=== PATIENT | male | born 1965 | race African-American/Black ===

== ENCOUNTER 2018-06-02 07:20 | Emergency (ER) | payer SELFPAY ==
[~2018-06-02] VITALS: Ht 180.3 cm; Wt 106.6 kg
[2018-06-02 07:20] VITALS: BP 157/103
[2018-06-02] MEDS ORDERED: KETOROLAC 60 MG/2 ML VIAL. IM ONE (07:45)
[2018-06-02] MEDS ORDERED: ORPHENADRINE CITRATE 60 MG/2 ML VIAL. IM ONE (07:45)
[2018-06-02] MEDS ORDERED: HYDROcodone/APAP 7.5/325MG 1 TAB TABLET PO ONE (07:45)
[2018-06-02] MEDS ORDERED: ORPHENADRINE ER 100 MG TABLET.ER PO ONE ×2 (07:48→08:00)
[2018-06-02] MEDS ORDERED: HYDR-965 PO (08:10)
[2018-06-02] MEDS ORDERED: ORPH-16 PO ×2 (08:10→08:18)
[2018-06-02] MEDS ORDERED: DICL50TA4 PO ×2 (08:10→08:18)
--- NOTE | 2018-06-02 08:10 | PHYS DOC ---
Past History Past Medical History: Hypertension Past Surgical History: No Surgical History Alcohol Use: None Drug Use: None Adult General Chief Complaint Chief Complaint: LOWER BACK PAIN OR INJURY HPI HPI Patient is a 52-year-old male who presents with complaint of flareup of his sciatica. Patient states that pain has been progressively worsening since yesterday. He states that he has been taking Tylenol at home but states that that has not been helping with the pain. He states that he does have a history of sciatica. He states the pain radiates down to his knee primarily in the back of his leg. He states that pain is worst around his right buttock. He denies any loss of bowel or bladder function. Pain is worsened with movement of his leg. Review of Systems Review of Systems Constitutional: Denies fever or chills [] Respiratory: Denies cough or shortness of breath [] GI: Denies abdominal pain, nausea, vomiting or diarrhea [] : Denies dysuria or hematuria [] Musculoskeletal: Complains of lower back pain and right buttock pain[] Integument: Denies rash or skin lesions [] Neurologic: Denies headache, focal weakness or sensory changes [] All other systems were reviewed and found to be within normal limits, except as documented in this note. Current Medications Current Medications Current Medications Medications (Trade) Dose Ordered Sig/Angel Start Time Stop Time Status Last Admin Dose Admin Acetaminophen/ Hydrocodone Bitart (Lortab 7.5/325) 1 tab 1X ONCE 06/02/18 07:45 06/02/18 07:46 DC 06/02/18 07:50 1 TAB Ketorolac Tromethamine (Toradol Im) 60 mg 1X ONCE 06/02/18 07:45 06/02/18 07:46 DC 06/02/18 07:50 60 MG Orphenadrine Citrate (Norflex Er) 100 mg 1X ONCE 06/02/18 08:00 06/02/18 08:01 DC 06/02/18 07:52 100 MG Orphenadrine Citrate (Norflex) 60 mg 1X ONCE 06/02/18 07:45 06/02/18 07:46 DC Allergies Allergies Allergies Coded Allergies Type Severity Reaction Last Updated Verified No Known Drug Allergies 06/02/18 No Physical Exam Physical Exam Constitutional: Well developed, well nourished, no acute distress, non-toxic appearance. [] Neck: Normal range of motion, no tenderness, supple, no stridor. [] Cardiovascular:Heart rate regular rhythm, no murmur [] Lungs & Thorax: Bilateral breath sounds clear to auscultation [] Back: There is tenderness to palpation in the right lower lumbar paraspinal musculature. Tenderness to palpation around the right buttock and evidence of piriformis spasm. [] Extremities: No tenderness, no cyanosis, no clubbing, ROM intact, no edema. [] Neurologic: Alert and oriented X 3, normal motor function, normal sensory function, no focal deficits noted. [] Current Patient Data Vital Signs Vital Signs Date Time Temp Pulse Resp B/P (MAP) Pulse Ox O2 Delivery O2 Flow Rate FiO2 06/02/18 07:20 97.6 70 18 100 Room Air EKG EKG [] Radiology/Procedures Radiology/Procedures [] Course & Med Decision Making Course & Med Decision Making Pertinent Labs and Imaging studies reviewed. (See chart for details) [] Dragon Disclaimer Dragon Disclaimer This electronic medical record was generated, in whole or in part, using a voice recognition dictation system. Departure Departure: Impression: Primary Impression: Sciatica Disposition: HOME, SELF-CARE Condition: STABLE Referrals: NON,STAFF (PCP) Patient Instructions: Sciatica Problem Qualifiers Primary Impression: Sciatica Laterality: right Qualified Codes: M54.31 - Sciatica, right side TAMIKO SMALL Jr. DO Jun 02, 2018 08:10
[2018-06-02] MEDS ORDERED: HYDR-2762 PO (08:18)
== END 2018-06-02 08:43 | disposition home or self-care (01) ==
LOC: ER 07:20
DX: M54.41 Lumbago with sciatica, right side (principal); I10 Essential (primary) hypertension
CPT/HCPCS: 96372; 99283; J1885

== ENCOUNTER 2018-07-03 18:46 | Emergency (ER) | payer SELFPAY ==
[~2018-07-03] VITALS: Ht 180.3 cm; Wt 108.9 kg
[~2018-07-03 18:46] MED LIST: DICL50TA4 PO; HYDR-2762 PO; HYDR-965 PO; ORPH-16 PO
--- NOTE | 2018-07-03 19:38 | PHYS DOC ---
Past History Past Medical History: GERD, High Cholesterol, Hypertension Past Surgical History: Other Additional Smoking Information: 1/2 PACK/DAY Alcohol Use: None Drug Use: None Adult General Chief Complaint Chief Complaint: HIP PAIN HPI HPI Patient is a 52 year old male who presents with complaint of right-sided back pain. Patient states symptoms started yesterday and have been worsening today. Patient states he's had previous history of sciatica. Patient states he's been taking ibuprofen with no improvement symptoms. Patient states that he has been prescribed Flexeril in the past and has this medication home but has not taken it. Patient came in to have his back pain evaluated to see if he could receive additional treatment. Denies any loss of bowel or bladder control, saddle anesthesia, or foot drop. Patient states that the pain terminates just below the knee but does not go all the way into his right foot. Denies any recent trauma, denies any swelling to the right lower extremity, and denies any chest pain or shortness of breath. Review of Systems Review of Systems Constitutional: Denies fever or chills [] Eyes: Denies change in visual acuity, redness, or eye pain [] HENT: Denies nasal congestion or sore throat [] Respiratory: Denies cough or shortness of breath [] Cardiovascular: No additional information not addressed in HPI [] GI: Denies abdominal pain, nausea, vomiting, bloody stools or diarrhea [] : Denies dysuria or hematuria [] Musculoskeletal: Right-sided back and lower extremity pain[] Integument: Denies rash or skin lesions [] Neurologic: Denies headache, focal weakness or sensory changes [] Endocrine: Denies polyuria or polydipsia [] All other systems were reviewed and found to be within normal limits, except as documented in this note. Allergies Allergies Allergies Coded Allergies Type Severity Reaction Last Updated Verified No Known Drug Allergies 06/02/18 No Physical Exam Physical Exam Constitutional: Well developed, well nourished, no acute distress, non-toxic appearance. [] HENT: Normocephalic, atraumatic, bilateral external ears normal, oropharynx moist, no oral exudates, nose normal. [] Eyes: PERRLA, EOMI, conjunctiva normal, no discharge. [] Neck: Normal range of motion, no tenderness, supple, no stridor. [] Cardiovascular:Heart rate regular rhythm, no murmur [] Lungs & Thorax: Bilateral breath sounds clear to auscultation [] Abdomen: Bowel sounds normal, soft, no tenderness, no masses, no pulsatile masses. [] Skin: Warm, dry, no erythema, no rash. [] Back: No midline tenderness, right lower lumbar paraspinous muscle tenderness to palpation, positive straight leg test on the right lower extremity. [] Extremities: No tenderness, no cyanosis, no clubbing, ROM intact, no edema. [] Neurologic: Alert and oriented X 3, normal motor function, normal sensory function, no focal deficits noted. [] Current Patient Data Vital Signs Vital Signs Date Time Temp Pulse Resp B/P (MAP) Pulse Ox O2 Delivery O2 Flow Rate FiO2 07/03/18 18:55 98.2 90 16 96 Room Air Lab Results Not performed EKG EKG Not performed[] Radiology/Procedures Radiology/Procedures Not performed[] Course & Med Decision Making Course & Med Decision Making Pertinent Labs and Imaging studies reviewed. (See chart for details) Patient was treated with Norflex and Depo-Medrol in the emergency department. Advised to continue on ibuprofen in 2 days and to start using Flexeril tomorrow as prescribed by his previous physician. Also recommended use of Tylenol 1000 mg every 6 hours as needed for pain. Recommended follow-up in one week with primary doctor for reevaluation and return to the emergency department for any worsening symptoms. Patient was understanding and in agreement with treatment plan. Dragon Disclaimer Dragon Disclaimer This electronic medical record was generated, in whole or in part, using a voice recognition dictation system. Departure Departure: Impression: Primary Impression: Sciatica of right side Disposition: 01 HOME, SELF-CARE Condition: IMPROVED Referrals: NON,STAFF (PCP) Patient Instructions: Sciatica Additional Instructions: Follow-up with your primary doctor in 1 week for reevaluation. You may take Tylenol 1000 mg every 6 hours as needed for pain. Is also recommended that you start on your Flexeril prescription as needed for pain. Return to emergency department for any worsening symptoms. BALJINDER HALL MD Jul 03, 2018 19:38
[2018-07-03] MEDS ORDERED: methylPREDNISolone ACETATE 80 MG/ML VIAL. IM ONE (19:45)
[2018-07-03] MEDS ORDERED: ORPHENADRINE CITRATE 60 MG/2 ML VIAL. IM ONE (19:45)
[2018-07-03 19:56] VITALS: BP 104/71
== END 2018-07-03 19:57 | disposition home or self-care (01) ==
LOC: ER 18:46
DX: M54.41 Lumbago with sciatica, right side (principal); K21.9 Gastro-esophageal reflux disease without esophagitis; E78.00 Pure hypercholesterolemia, unspecified; I10 Essential (primary) hypertension; F17.200 Nicotine dependence, unspecified, uncomplicated
CPT/HCPCS: 96372; 99284; J1040; J2360

== ENCOUNTER 2018-07-08 07:27 | Emergency (ER) | payer SELFPAY ==
[~2018-07-08] VITALS: Ht 180.3 cm; Wt 105.9 kg
[~2018-07-08 07:27] MED LIST changes: +HYDR-3166 PO; -HYDR-965 PO
[2018-07-08] MEDS ORDERED: HYDR-3165 PO (08:10)
[2018-07-08] MEDS ORDERED: METH4TAB2 PO (08:10)
[2018-07-08 08:12] VITALS: BP 141/92
--- NOTE | 2018-07-08 08:13 | PHYS DOC ---
Past History Past Medical History: GERD, High Cholesterol, Hypertension Past Surgical History: Other Alcohol Use: None Drug Use: None Adult General Chief Complaint Chief Complaint: BACK PAIN OR INJURY [facility] HPI Patient is a 52 year old male who presents with complaining of back pain since yesterday. Patient states he has had history of chronic right sciatica and was seen in this emergency room 5 days ago but since yesterday his low back pain is getting worse. Patient complaining of constant right lower back pain with radiation to posterior thigh and rated his pain 8/10. Patient denies focal neuro deficit, urine and bowel incontinence, fever and chills, abdominal pain. Patient states he took muscle relaxant that was given by his physician at which stopped. Patient states he moved to this area recently and doesn't have a primary care physician. Review of Systems Review of Systems Constitutional: Denies fever or chills [] Eyes: Denies change in visual acuity, redness, or eye pain [] HENT: Denies nasal congestion or sore throat [] Respiratory: Denies cough or shortness of breath [] Cardiovascular: No additional information not addressed in HPI [] GI: Denies abdominal pain, nausea, vomiting, bloody stools or diarrhea [] : Denies dysuria or hematuria [] Musculoskeletal: Reports back pain or joint pain [] Integument: Denies rash or skin lesions [] Neurologic: Denies headache, focal weakness or sensory changes [] Endocrine: Denies polyuria or polydipsia [] All other systems were reviewed and found to be within normal limits, except as documented in this note. Current Medications Current Medications Current Medications Medications (Trade) Dose Ordered Sig/[facility] Start Time Stop Time Status Last Admin Dose Admin Ketorolac Tromethamine (Toradol Im) 60 mg 1X ONCE 07/08/18 08:15 07/08/18 08:16 Allergies Allergies Allergies Coded Allergies Type Severity Reaction Last Updated Verified No Known Drug Allergies 06/02/18 No Physical Exam Physical Exam Constitutional: Well developed, well nourished, mild distress, non-toxic appearance. [] HENT: Normocephalic, atraumatic Eyes: PERRLA, EOMI, conjunctiva normal, no discharge. [] Neck: Normal range of motion, no tenderness, supple, no stridor. [] Cardiovascular:Heart rate regular rhythm, no murmur [] Lungs & Thorax: Bilateral breath sounds clear to auscultation [] Abdomen: Bowel sounds normal, soft, no tenderness, no masses, no pulsatile masses. [] Skin: Warm, dry, no erythema, no rash. [] Back: No midline tenderness, no CVA tenderness. [] Extremities: No tenderness, no cyanosis, no clubbing, ROM intact, no edema. [] Neurologic: Alert and oriented X 3, normal motor function, normal sensory function, no focal deficits noted. [] Psychologic: Affect normal, judgement normal, mood normal. [] EKG EKG [] Radiology/Procedures Radiology/Procedures [] Course & Med Decision Making Course & Med Decision Making discharge: I've spoken with the patient and/or caregivers. I've explained the patient's condition, diagnosis and treatment plan based on information available to me at this time. I've answered the patient's and/or caregivers questions and addressed any concerns. The patient and/or caregivers have a good understanding the patient's diagnosis, condition and treatment plan as can be expected at this point. Vital signs have been stabilized. The patient's condition is stable for discharge from the emergency department. The patient will pursue further outpatient evaluation with her primary care provider or other designated consulting physician as outlined in the discharge instructions. Patient and/or caregivers are agreeable to this plan of care and follow-up instructions have been explained in detail. The patient and/or caregivers have received these instructions in written format and expressed understanding of these discharge instructions. The patient and her caregivers are aware that if any significant change in condition or worsening of symptoms should prompt him to immediately return to this of the closest emergency department. If an emergent department is not readily available I would encourage him to call 911. Becky Disclaimer Becky Disclaimer This electronic medical record was generated, in whole or in part, using a voice recognition dictation system. Departure Departure: Impression: Primary Impression: Right sided sciatica Additional Impressions: Tobacco abuse Tobacco abuse counseling Disposition: HOME, SELF-CARE (at 0815) Condition: STABLE Referrals: PCPEDER (PCP) Patient Instructions: Sciatica, Smoking Cessation, Tips For Success Additional Instructions: Apply ice on your back Follow-up with your primary care physician in 3-5 days Return to ER if not getting better Scripts Hydrocodone Bit/Acetaminophen (NORCO 5-325 TABLET) 1 Each Tablet 1 TAB PO PRN Q6HRS PRN for PAIN, #8 TAB 0 Refills Prov: CYNDEE CLINTON MD 07/08/18 Methylprednisolone (MEDROL) 4 Mg Tab.ds.pk 1 PKG PO UD for inflammation, #1 PKG Prov: CYNDEE CLINTON MD 07/08/18 Problem Qualifiers CYNDEE CLINTON MD Jul 08, 2018 08:13
[2018-07-08] MEDS ORDERED: KETOROLAC 60 MG/2 ML VIAL. IM ONE (08:15)
== END 2018-07-08 08:28 | disposition home or self-care (01) ==
LOC: ER 07:27
DX: M54.41 Lumbago with sciatica, right side (principal); K21.9 Gastro-esophageal reflux disease without esophagitis; E78.00 Pure hypercholesterolemia, unspecified; I10 Essential (primary) hypertension; Z72.0 Tobacco use; Z71.6 Tobacco abuse counseling
CPT/HCPCS: 96372; 99283; J1885

== ENCOUNTER 2018-07-18 09:23 | Emergency (ER) | payer SELFPAY ==
[~2018-07-18] VITALS: Ht 180.3 cm; Wt 104.6 kg
[~2018-07-18 09:23] MED LIST changes: -HYDR-2762 PO; +HYDR-2765 PO; +HYDR-3165 PO; +METH4TAB2 PO
--- NOTE | 2018-07-18 10:13 | PHYS DOC ---
Past History Past Medical History: Hypertension Past Surgical History: Other Additional Smoking Information: 1 pack/day Alcohol Use: None Drug Use: None Adult General Chief Complaint Chief Complaint: BACK PAIN OR INJURY HPI HPI 52-year-old male presents with right-sided low back pain and right hip pain. He states he's had intermittent problems with this area for several years. Yesterday began to flareup and he tried taking [id number] medicines. He did not help very much. When the patient woke up this morning, he states the pain was much worse. It is a deep aching 7 out of 10. The patient recently moved here from [place]. He is not established with a primary care physician here yet. Patient states that if he has [place] for 2 days that usually calms down afterward for at least a couple weeks. He admits that the flareups to be getting more frequent. He was supposed to start physical therapy and would stop before he moved but was unable to do that. He denies fever or chills. Review of Systems Review of Systems Constitutional: Denies fever or chills [] Eyes: Denies change in visual acuity, redness, or eye pain [] HENT: Denies nasal congestion or sore throat [] Respiratory: Denies cough or shortness of breath [] Cardiovascular: No additional information not addressed in HPI [] GI: Denies abdominal pain, nausea, vomiting, bloody stools or diarrhea [] : Denies dysuria or hematuria [] Musculoskeletal: Low back pain, right hip pain[] Integument: Denies rash or skin lesions [] Neurologic: Denies headache, focal weakness or sensory changes [] Endocrine: Denies polyuria or polydipsia [] All other systems were reviewed and found to be within normal limits, except as documented in this note. Allergies Allergies Allergies Coded Allergies Type Severity Reaction Last Updated Verified No Known Drug Allergies 06/02/18 No Physical Exam Physical Exam Constitutional: Well developed, well nourished, no acute distress, non-toxic appearance. [] HENT: Normocephalic, atraumatic, bilateral external ears normal, oropharynx moist, no oral exudates, nose normal. [] Eyes: PERRLA, EOMI, conjunctiva normal, no discharge. [] Neck: Normal range of motion, no tenderness, supple, no stridor. [] Cardiovascular:Heart rate regular rhythm, no murmur [] Lungs & Thorax: Bilateral breath sounds clear to auscultation [] Abdomen: Bowel sounds normal, soft, no tenderness, no masses, no pulsatile masses. [] Skin: Warm, dry, no erythema, no rash. [] Back: Paraspinal tenderness on the right L3-L5. Right sacroiliac tenderness.[] Extremities: No tenderness, no cyanosis, no clubbing, ROM intact, no edema. [] Neurologic: Alert and oriented X 3, normal motor function, normal sensory function, no focal deficits noted. [] Psychologic: Affect normal, judgement normal, mood normal. [] Current Patient Data Vital Signs Vital Signs Date Time Temp Pulse Resp B/P (MAP) Pulse Ox O2 Delivery O2 Flow Rate FiO2 07/18/18 09:32 98.0 88 16 96 Room Air EKG EKG [] Radiology/Procedures Radiology/Procedures [] Course & Med Decision Making Course & Med Decision Making Pertinent Labs and Imaging studies reviewed. (See chart for details) I believe the patient has sacroiliac dysfunction and possible lumbar degenerative change. He has had a couple of prescriptions filled from this emergency room for [place]. I explained to him that I would provide him one more short course of this medication in addition to the steroid treatment that I will prescribe. I explained that we will be unable to do any more narcotics for this chronic pain. He must go back to [place] and follow-up with his current physician or establish with a new physician so he can have more consistent care and to get into physical therapy. He states verbal understanding. [] Dragon Disclaimer Dragon Disclaimer This electronic medical record was generated, in whole or in part, using a voice recognition dictation system. Departure Departure: Referrals: PCP,EDER (PCP) ELKE FENTON DO Jul 18, 2018 10:13
[2018-07-18] MEDS: methylPREDNISolone SOD SUCC PF 125 MG/2 ML VIAL. IM ONE (10:25)
[2018-07-18] MEDS: HYDROcodone/APAP 7.5/325MG 1 TAB TABLET PO ONE (10:25)
[2018-07-18] MEDS ORDERED: HYDR-3166 PO (10:31)
[2018-07-18] MEDS ORDERED: PRED-220 PO (10:35)
[2018-07-18 10:38] VITALS: BP 133/93
[2018-07-19] MEDS ORDERED: TRAM-48 PO (12:19)
[2018-07-19] MEDS ORDERED: CYCL-331 PO (12:19)
== END 2018-07-18 10:47 | disposition home or self-care (01) ==
LOC: ER 09:23
DX: M53.3 Sacrococcygeal disorders, not elsewhere classified (principal); M54.5 Low back pain; M25.551 Pain in right hip; G89.29 Other chronic pain; I10 Essential (primary) hypertension; F17.200 Nicotine dependence, unspecified, uncomplicated
CPT/HCPCS: 96372; 99283; J2930

== ENCOUNTER 2018-07-19 10:47 | Emergency (ER) | payer SELFPAY ==
[~2018-07-19] VITALS: Ht 180.3 cm; Wt 106.6 kg
[~2018-07-19 10:47] MED LIST changes: +PRED-220 PO
[2018-07-19 11:02] VITALS: BP 158/72
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
[2018-07-19] MEDS ORDERED: HYDROcodone/APAP 5/325MG 1 TAB TABLET PO ONE (12:00)
[2018-07-19] MEDS ORDERED: CYCL-331 PO (12:19)
[2018-07-19] MEDS ORDERED: TRAM-48 PO (12:19)
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
== END 2018-07-19 12:41 | disposition home or self-care (01) ==
LOC: ER 10:47
DX: S43.492A Other sprain of left shoulder joint, initial encounter (principal); E78.00 Pure hypercholesterolemia, unspecified; I10 Essential (primary) hypertension; F17.210 Nicotine dependence, cigarettes, uncomplicated; Z71.6 Tobacco abuse counseling; X50.9XXA Other and unspecified overexertion or strenuous movements or postures, initial encounter; Y93.89 Activity, other specified; Y92.89 Other specified places as the place of occurrence of the external cause; Y99.8 Other external cause status
CPT/HCPCS: 73030; 99283

== ENCOUNTER 2018-08-05 06:07 | Emergency (ER) | payer SELFPAY ==
[~2018-08-05] VITALS: Ht 182.9 cm; Wt 106.6 kg
[~2018-08-05 06:07] MED LIST changes: +CYCL-331 PO; +TRAM-48 PO
[2018-08-05 06:19] VITALS: BP 148/86
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
[2018-08-05] MEDS ORDERED: methylPREDNISolone SOD SUCC PF 125 MG/2 ML VIAL. IV ONE (06:45)
[2018-08-05] MEDS ORDERED: KETOROLAC 60 MG/2 ML VIAL. IM ONE (06:45)
[2018-08-05] MEDS ORDERED: PRED-220 PO (06:47)
[2018-08-05] MEDS ORDERED: methylPREDNISolone SOD SUCC PF 125 MG/2 ML VIAL. IM ONE (07:00)
== END 2018-08-05 07:00 | disposition home or self-care (01) ==
LOC: ER 06:07
DX: G89.29 Other chronic pain (principal); M54.5 Low back pain; E78.00 Pure hypercholesterolemia, unspecified; I10 Essential (primary) hypertension; F17.210 Nicotine dependence, cigarettes, uncomplicated
CPT/HCPCS: 96372; 99283; J1885; J2930

== ENCOUNTER → 2018-08-24 | Outpatient (CLI) | payer SELFPAY ==
[2018-08-05 06:19] VITALS: BP 148/86
[2018-08-24 17:18] LABS: ALBUMIN 3.7 g/dL (3.4-5.0); ALBUMIN/GLOBULIN RATIO 1.1 (1.0-1.7); CALCIUM 9.5 mg/dL (8.5-10.1); CREATININE 1.3 mg/dL (0.7-1.3); GFR 70.4; POTASSIUM 4.8 mmol/L (3.5-5.1); TOTAL BILIRUBIN 0.2 mg/dL (0.2-1.0)
[2018-08-24 17:19] LABS: BASO # 0.1 x10^3/uL (0.0-0.2); BASO % 1 % (0-3); EOS # 0.4 x10^3/uL (0.0-0.7); EOS % 5 % (0-3); HEMATOCRIT 47.3 % (39.0-53.0); HEMOGLOBIN 16.3 g/dL (13.0-17.5); LYMPH # 2.7 x10^3/uL (1.0-4.8); LYMPH % 37 % (24-48); MEAN CORPUSCULAR HEMOGLOBIN 32 pg (25-35); MEAN CORPUSCULAR HGB CONC 34 g/dL (31-37); MEAN CORPUSCULAR VOLUME 93 fL (79-100); MONO # 0.7 x10^3/uL (0.0-1.1); MONO % 10 % (0-9); NEUT # 3.5 x10^3uL (1.8-7.7); NEUT % 47 % (31-73); PLATELET COUNT 222 x10^3/uL (140-400); RED BLOOD COUNT 5.08 x10^6/uL (4.30-5.70); RED CELL DISTRIBUTION WIDTH 14.3 % (11.5-14.5); WHITE BLOOD COUNT 7.4 x10^3/uL (4.0-11.0)
[2018-08-24 18:15] LABS: % BANDS 2 % (0-9); % BASOS 2 % (0-3); % EOS 7 % (0-5); % LYMPHS 31 % (24-48); % MONOS 8 % (0-10); % SEGS 42 % (35-66)
[2018-08-24 18:16] LABS: PLT ESTIMATE ADEQUATE (ADEQUATE); SMUDGE CELLS PRESENT
== END | disposition home or self-care (01) ==
LOC: LAB 16:59
PROVIDERS: ATTEND Family Medicine
DX: I10 Essential (primary) hypertension (principal); M25.512 Pain in left shoulder; F31.9 Bipolar disorder, unspecified; F43.10 Post-traumatic stress disorder, unspecified
CPT/HCPCS: 36415; 80053; 82306; 84443; 85007; 85025

== ENCOUNTER 2018-09-10 14:44 | Emergency (ER) | payer SELFPAY ==
[~2018-09-10] VITALS: Ht 182.9 cm; Wt 113.4 kg
[2018-09-10] MEDS ORDERED: KETOROLAC 60 MG/2 ML VIAL. IM ONE (15:30)
[2018-09-10] MEDS ORDERED: methylPREDNISolone SOD SUCC PF 125 MG/2 ML VIAL. IM ONE (15:30)
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
[2018-09-10 16:15] VITALS: BP 138/89
== END 2018-09-10 16:15 | disposition home or self-care (01) ==
LOC: ER 14:44
DX: G89.29 Other chronic pain (principal); M54.5 Low back pain; F17.210 Nicotine dependence, cigarettes, uncomplicated; E78.00 Pure hypercholesterolemia, unspecified; I10 Essential (primary) hypertension
CPT/HCPCS: 96372; 99283; J1885; J2930

== ENCOUNTER 2018-09-27 14:31 | Emergency (ER) | payer SELFPAY ==
--- NOTE | 2018-09-27 15:03 | RAD ---
CHEST PA LATERAL History: COUGH, SHORT OF BREATH. COMPARISON: None available FINDINGS: Heart size is not enlarged. No evidence of pneumothorax or pleural effusion. No focal infiltrate. There is some metallic density overlying the left shoulder. This could represent some soft tissue shrapnel. IMPRESSION: No evidence of acute infiltrate. Electronically signed by: Parvez Naik MD (09/27/2018 2:59 PM) [facility]
[2018-09-27] MEDS ORDERED: IPRATRPIUM/ALBUTEROL 0.5/2.5MG 3 ML NEBU. NEB ONE (15:15)
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
[2018-09-27] MEDS ORDERED: AMOX1TAB61 PO (15:19)
[2018-09-27] MEDS ORDERED: GUAI118L20 PO (15:19)
[2018-09-27] MEDS ORDERED: METH4TAB2 PO (15:19)
[2018-09-27 15:22] VITALS: BP 151/93
== END 2018-09-27 15:22 | disposition home or self-care (01) ==
LOC: ER 14:31
DX: J20.9 Acute bronchitis, unspecified (principal); E78.00 Pure hypercholesterolemia, unspecified; I10 Essential (primary) hypertension; F17.210 Nicotine dependence, cigarettes, uncomplicated
CPT/HCPCS: 71046; 94640; 99283; J7620

== ENCOUNTER 2018-10-14 06:18 | Emergency (ER) | payer SELFPAY ==
[~2018-10-14] VITALS: Ht 182.9 cm; Wt 113.4 kg
[~2018-10-14 06:18] MED LIST changes: +AMOX1TAB61 PO; +GUAI118L20 PO
[2018-10-14 06:20] VITALS: BP 136/74
[2018-10-14] MEDS ORDERED: HYDROcodone/APAP 5/325MG 1 TAB TABLET PO ONE (06:45)
[2018-10-14] MEDS ORDERED: HYDR-3165 PO (07:14)
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
--- NOTE | 2018-10-14 08:01 | RAD ---
KNEE RIGHT 4V History: RIGHT KNEE PAIN ONSET YESTERDAY. NO KNOWN INJURY. Comparison: None are available Chondrocalcinosis of the medial and lateral menisci. No evidence of acute fracture. No dislocation. Small joint effusion is suggested. No aggressive bone destruction. IMPRESSION: No acute radiographic findings. Chronic medial and lateral compartment chondrocalcinosis. Electronically signed by: Parvez Naik MD (10/14/2018 7:58 AM) [facility]
== END 2018-10-14 07:18 | disposition home or self-care (01) ==
LOC: ER 06:18
DX: M25.561 Pain in right knee (principal); E78.00 Pure hypercholesterolemia, unspecified; I10 Essential (primary) hypertension; F17.210 Nicotine dependence, cigarettes, uncomplicated; M11.261 Other chondrocalcinosis, right knee
CPT/HCPCS: 73564; 99283

== ENCOUNTER 2018-10-16 22:10 | Emergency (ER) | payer SELFPAY ==
[~2018-10-16] VITALS: Ht 182.9 cm; Wt 115.7 kg
[2018-10-16 22:10] VITALS: BP 162/65
[2018-10-16] MEDS ORDERED: PRED20TA PO (22:56)
[2018-10-16] MEDS ORDERED: OXYC1TAB15 PO (22:56)
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
[2018-10-16] MEDS ORDERED: KETOROLAC 60 MG/2 ML VIAL. IM ONE (22:57)
[2018-10-16] MEDS ORDERED: KETOROLAC 15 MG/ML VIAL. IM ONE (23:00)
[2018-10-16] MEDS ORDERED: DEXAMETHASONE 4 MG TABLET PO ONE (23:00)
[2018-10-16] MEDS ORDERED: oxyCODONE/APAP 5/325 1 TAB TABLET PO ONE (23:00)
[2018-10-16] MEDS ORDERED: KETOROLAC 15 MG/ML VIAL. ONE (23:03)
== END 2018-10-16 23:07 | disposition home or self-care (01) ==
LOC: ER 22:10
DX: M54.31 Sciatica, right side (principal); M25.561 Pain in right knee; E78.00 Pure hypercholesterolemia, unspecified; I10 Essential (primary) hypertension; F17.210 Nicotine dependence, cigarettes, uncomplicated
CPT/HCPCS: 96372; 99283; J1885; J8540

== ENCOUNTER 2018-11-03 03:06 | Emergency (ER) | payer SELFPAY ==
[~2018-11-03] VITALS: Ht 182.9 cm; Wt 111.1 kg
[~2018-11-03 03:06] MED LIST changes: +OXYC1TAB15 PO; +PRED20TA PO
[2018-11-03] MEDS ORDERED: MORPHINE SULFATE 4 MG/ML DISP.SYRIN. IV/SQ PRN (03:15)
[2018-11-03] MEDS ORDERED: ASPIRIN 81 MG TAB.CHEW PO ONE (03:30)
[2018-11-03] MEDS ORDERED: LIDO:MAALOX 1:1 20 ML SINGLE DOSE. PO ONE (03:30)
[2018-11-03] MEDS ORDERED: PANTOPRAZOLE IV 40 MG VIAL. IVP ONE (03:30)
[2018-11-03] MEDS ORDERED: ONDANSETRON PF 4 MG/2 ML VIAL. IV ONE (03:30)
[2018-11-03] MEDS ORDERED: IV NORMAL SALINE 1,000ML 1,000 ML IV SCH (03:30)
[2018-11-03 03:39] LABS: BASO # 0.1 x10^3/uL (0.0-0.2); BASO % 1 % (0-3); EOS # 0.5 x10^3/uL (0.0-0.7); EOS % 5 % (0-3); HEMATOCRIT 45.6 % (39.0-53.0); HEMOGLOBIN 15.6 g/dL (13.0-17.5); LYMPH # 2.6 x10^3/uL (1.0-4.8); LYMPH % 29 % (24-48); MEAN CORPUSCULAR HEMOGLOBIN 32 pg (25-35); MEAN CORPUSCULAR HGB CONC 34 g/dL (31-37); MEAN CORPUSCULAR VOLUME 94 fL (79-100); MONO % 11 % (0-9); NEUT # 4.9 x10^3uL (1.8-7.7); NEUT % 54 % (31-73); PLATELET COUNT 259 x10^3/uL (140-400); RED BLOOD COUNT 4.83 x10^6/uL (4.30-5.70); RED CELL DISTRIBUTION WIDTH 14.1 % (11.5-14.5); WHITE BLOOD COUNT 9.2 x10^3/uL (4.0-11.0)
--- NOTE | 2018-11-03 03:56 | RAD ---
Indication:Sharp chest pain radiating to abdomen. Hx current smoker 1/2 pack per day TECHNIQUE:Portable AP chest X-ray COMPARISON:09/27/2018 FINDINGS: Heart is normal in size. Lungs are clear. No pneumothorax or pleural effusion. Visualized bony thorax is within normal limits. IMPRESSION: No acute pulmonary process. Electronically signed by: Cyrus Appiah DO (11/03/2018 3:53 AM) [facility]
[2018-11-03 04:03] LABS: ALBUMIN 3.7 g/dL (3.4-5.0); ALK PHOS 97 U/L (46-116); ALT (SGPT) 31 U/L (16-63); ANION GAP 12 (6-14); AST (SGOT) 32 U/L (15-37); BLOOD UREA NITROGEN 18 mg/dL (8-26); BUN/CREATININE RATIO 13 (6-20); CALCIUM 9.5 mg/dL (8.5-10.1); CARBON DIOXIDE 25 mmol/L (21-32); CHLORIDE 105 mmol/L (98-107); CREATININE 1.4 mg/dL (0.7-1.3); GFR 64.4; GLUCOSE 127 mg/dL (70-99); LIPASE 201 U/L (73-393); MAGNESIUM 1.9 mg/dL (1.8-2.4); POTASSIUM 3.7 mmol/L (3.5-5.1); SODIUM 142 mmol/L (136-145); TOTAL BILIRUBIN 0.2 mg/dL (0.2-1.0); TOTAL PROTEIN 7.5 g/dL (6.4-8.2)
[2018-11-03 04:05] VITALS: BP 131/66
[2018-11-03] MEDS ORDERED: PANT40TA3 PO (04:13)
[2018-11-03] MEDS ORDERED: TRAM50TA PO (04:13)
[2018-11-03] MEDS ORDERED: ONDA4TAB7 PO (04:13)
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
--- NOTE | 2018-11-03 05:24 | EKG ---
[address] [address] Test Date: 2018-11-03 Test Time: 03:12:11 Pat Name: NONA CAPPS Department: Room: Gender: M Director Global [employer]: JOHN : 1965 Requested By: TAMIKO SMALL Order Number: [id number] Reading MD: Jordan Longoria MD Measurements Intervals [place] Rate: 92 P: 62 ME: 136 QRS: 31 QRSD: 88 T: 48 QT: 334 QTc: 418 Interpretive Statements SINUS RHYTHM Electronically Signed On 11-08-2018 14:04:08 CDT by Jordan Longoria MD
== END 2018-11-03 04:23 | disposition home or self-care (01) ==
LOC: ER 03:06
DX: K21.9 Gastro-esophageal reflux disease without esophagitis (principal); E78.00 Pure hypercholesterolemia, unspecified; I10 Essential (primary) hypertension; F17.210 Nicotine dependence, cigarettes, uncomplicated
CPT/HCPCS: 36415; 71045; 80053; 83690; 83735; 83880; 84484; 85025; 93005; 96374; 96375; 99284; C9113; J2270; J2405; J7030

== ENCOUNTER 2018-11-22 05:14 | Emergency (ER) | payer SELFPAY ==
[~2018-11-22] VITALS: Ht 182.9 cm; Wt 117.7 kg
[~2018-11-22 05:14] MED LIST changes: +ONDA4TAB7 PO; +PANT40TA3 PO; +TRAM50TA PO
[2018-11-22 05:15] VITALS: BP 133/88
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
[2018-11-22] MEDS ORDERED: KETOROLAC 60 MG/2 ML VIAL. IM ONE (05:30)
[2018-11-22] MEDS ORDERED: ORPHENADRINE CITRATE 60 MG/2 ML VIAL. IM ONE (05:30)
[2018-11-22] MEDS ORDERED: methylPREDNISolone ACETATE 40 MG/ML VIAL. IM ONE (05:30)
[2018-11-22] MEDS ORDERED: MORPHINE SULFATE 10 MG/ML SYRINGE. SQ ONE (05:30)
[2018-11-22] MEDS ORDERED: CYCL-331 PO (05:33)
[2018-11-22] MEDS ORDERED: HYDR-1179 PO (05:33)
== END 2018-11-22 06:22 | disposition home or self-care (01) ==
LOC: ER 05:14
DX: M54.41 Lumbago with sciatica, right side (principal); G89.29 Other chronic pain; K21.9 Gastro-esophageal reflux disease without esophagitis; E78.00 Pure hypercholesterolemia, unspecified; I10 Essential (primary) hypertension; F17.210 Nicotine dependence, cigarettes, uncomplicated
CPT/HCPCS: 96372; 99283; J1030; J1885; J2270; J2360

== ENCOUNTER 2018-12-04 05:06 | Emergency (ER) | payer SELFPAY ==
[~2018-12-04] VITALS: Ht 182.9 cm; Wt 117.7 kg
[~2018-12-04 05:06] MED LIST changes: +HYDR-1179 PO
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
[2018-12-04] MEDS ORDERED: methylPREDNISolone ACETATE 40 MG/ML VIAL. IM ONE (06:00)
[2018-12-04] MEDS ORDERED: MORPHINE SULFATE 10 MG/ML SYRINGE. SQ ONE (06:00)
[2018-12-04] MEDS ORDERED: ORPHENADRINE CITRATE 60 MG/2 ML VIAL. IV ONE (06:00)
[2018-12-04] MEDS ORDERED: IV RINGERS SOLUTION,LACTATED 1,000 ML IV SCH (06:00)
[2018-12-04] MEDS ORDERED: KETOROLAC 60 MG/2 ML VIAL. IM ONE (06:00)
--- NOTE | 2018-12-04 06:00 | RAD ---
CT lumbar spine without contrast PQRS statement: CT scans at this facility use dose reduction including either automated exposure control, iterative reconstructions, and /or weight based radiation dosing via mA and kV modification when appropriate to reduce radiation dose to as low as reasonably achievable. HISTORY: Sciatica, severe lower back pain. TECHNIQUE: Helical multiplanar reconstructed noncontrast CT imaging of the lumbar spine was acquired. FINDINGS: Transitional lumbosacral anatomy with 6 lumbar type vertebra likely due to lumbarization of the S1 vertebra. Lumbar vertebral body height and alignment intact. There is 4 mm retrolisthesis of L5 on S1. Extensive discogenic bony sclerosis and numerous Schmorl's nodes as well as endplate osteophytes at L5-S1. No fracture. No spondylolysis defect. Aortoiliac artery calcified plaque. Lumbar disc disease is present as described below. L1-L2 and L2-L3: Unremarkable. L3-L4: There may be a shallow disc bulge, annulus osteophytes contributing to probable mild spinal canal and neural foraminal stenoses. L4-L5: Posterior disc height loss, disc bulge and annulus osteophytes and vertebral spurring and facet hypertrophy contributing to moderate spinal canal stenosis and moderate to severe neural foraminal stenoses. L5-S1: Vacuum disc, disc height loss, bulky disc bulge and endplate spurring. Facet hypertrophy and mild spurring. Severe spinal canal and neural foraminal stenoses. 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 No acute osseous injury. Lumbar disc disease as described above. Exposure: One or more of the following individualized dose reduction techniques were utilized for this examination: 1. Automated exposure control 2. Adjustment of the mA and/or kV according to patient size 3. Use of iterative reconstruction technique Electronically signed by: Hamilton Munoz MD (12/04/2018 5:58 AM) [id number]
[2018-12-04 06:56] LABS: ALBUMIN 3.8 g/dL (3.4-5.0); BLOOD UREA NITROGEN 17 mg/dL (8-26); CREATININE 1.3 mg/dL (0.7-1.3); GFR 70.1; TOTAL BILIRUBIN 0.2 mg/dL (0.2-1.0); TOTAL PROTEIN 7.2 g/dL (6.4-8.2)
[2018-12-04 06:57] LABS: ALK PHOS 98 U/L (46-116); ALT (SGPT) 33 U/L (16-63); ANION GAP 8 (6-14); AST (SGOT) 35 U/L (15-37); CARBON DIOXIDE 25 mmol/L (21-32); CHLORIDE 106 mmol/L (98-107); POTASSIUM 4.6 mmol/L (3.5-5.1); SODIUM 139 mmol/L (136-145)
[2018-12-04 06:58] LABS: DIRECT BILIRUBIN < 0.1 mg/dL (0.0-0.2)
[2018-12-04 07:01] LABS: WHITE BLOOD COUNT 8.2 x10^3/uL (4.0-11.0)
[2018-12-04 07:02] LABS: BASO # 0.1 x10^3/uL (0.0-0.2); BASO % 1 % (0-3); EOS # 0.4 x10^3/uL (0.0-0.7); EOS % 6 % (0-3); HEMATOCRIT 45.3 % (39.0-53.0); HEMOGLOBIN 15.7 g/dL (13.0-17.5); LYMPH # 2.4 x10^3/uL (1.0-4.8); LYMPH % 29 % (24-48); MEAN CORPUSCULAR HEMOGLOBIN 33 pg (25-35); MEAN CORPUSCULAR HGB CONC 35 g/dL (31-37); MEAN CORPUSCULAR VOLUME 95 fL (79-100); MONO # 0.9 x10^3/uL (0.0-1.1); MONO % 10 % (0-9); NEUT # 4.5 x10^3uL (1.8-7.7); NEUT % 54 % (31-73); PLATELET COUNT 262 x10^3/uL (140-400); RED BLOOD COUNT 4.79 x10^6/uL (4.30-5.70); RED CELL DISTRIBUTION WIDTH 13.8 % (11.5-14.5)
[2018-12-04 07:05] LABS: CALCIUM 9.2 mg/dL (8.5-10.1); GLUCOSE 93 mg/dL (70-99)
[2018-12-04] MEDS ORDERED: HYDROcodone/APAP 7.5/325MG 1 TAB TABLET ONE (07:41)
[2018-12-04 08:00] VITALS: BP 134/88
[2018-12-04] MEDS ORDERED: HYDROcodone/APAP 7.5/325MG 1 TAB TABLET PO ONE (08:00)
--- NOTE | 2018-12-04 08:14 | RAD ---
PORTABLE CHEST 1V History: Cough, congestion Comparison: November 03, 2018 Findings: Single view of the chest is submitted. There is no infiltrate, pneumothorax, or effusion. The pericardial cardiac silhouette is within normal limits in size. Impression: 1. There is no radiographic evidence of acute cardiopulmonary disease. Electronically signed by: Vern Dunbar MD (12/04/2018 8:11 AM) [id number]
== END 2018-12-04 08:00 | disposition home or self-care (01) ==
LOC: ER 05:06
DX: G89.29 Other chronic pain (principal); M54.41 Lumbago with sciatica, right side; K21.9 Gastro-esophageal reflux disease without esophagitis; E78.00 Pure hypercholesterolemia, unspecified; I10 Essential (primary) hypertension; F17.210 Nicotine dependence, cigarettes, uncomplicated
CPT/HCPCS: 36415; 71045; 72131; 80048; 80076; 84443; 84484; 85025; 85610; 85730; 96372; 96374; 99285; J1030; J1885; J2270; J2360; J7120

== ENCOUNTER 2018-12-23 18:17 | Emergency (ER) | payer SELFPAY ==
[~2018-12-23] VITALS: Ht 182.9 cm; Wt 117.7 kg
[2018-12-23 18:17] VITALS: BP 134/80
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
[2018-12-23] MEDS ORDERED: CEPH-264 PO (19:10)
[2018-12-23] MEDS ORDERED: KETOROLAC 60 MG/2 ML VIAL. IM ONE (19:15)
[2018-12-23] MEDS ORDERED: DIPHTH,PERTUSS(ACELL),TET TOX 0.5 ML DISP.SYRIN. VAX IM ONE (19:15)
[2018-12-23] MEDS ORDERED: cefTRIAXone IM 1 GM VIAL IM ONE (19:15)
== END 2018-12-23 19:50 | disposition home or self-care (01) ==
LOC: ER 18:17
DX: K02.9 Dental caries, unspecified (principal); K21.9 Gastro-esophageal reflux disease without esophagitis; E78.00 Pure hypercholesterolemia, unspecified; I10 Essential (primary) hypertension; F17.210 Nicotine dependence, cigarettes, uncomplicated
CPT/HCPCS: 90471; 90715; 96372; 99284; J0696; J1885

== ENCOUNTER 2019-02-04 21:52 | Emergency (ER) | payer SELFPAY ==
[~2019-02-04] VITALS: Ht 182.9 cm; Wt 111.1 kg
[~2019-02-04 21:52] MED LIST changes: +CEPH-264 PO
[2019-02-04 21:55] VITALS: BP 169/89
[2019-02-04] MEDS ORDERED: PRED-220 PO (22:36)
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
[2019-02-04] MEDS: HYDROcodone/APAP 7.5/325MG 1 TAB TABLET PO ONE (22:45)
[2019-02-04] MEDS: methylPREDNISolone SOD SUCC PF 125 MG/2 ML VIAL. IM ONE (22:45)
== END 2019-02-04 22:48 | disposition home or self-care (01) ==
LOC: ER 21:52
DX: M54.41 Lumbago with sciatica, right side (principal); K21.9 Gastro-esophageal reflux disease without esophagitis; E78.00 Pure hypercholesterolemia, unspecified; I10 Essential (primary) hypertension; F17.210 Nicotine dependence, cigarettes, uncomplicated
CPT/HCPCS: 96372; 99283; J2930

== ENCOUNTER 2019-02-14 21:40 | Emergency (ER) | payer SELFPAY ==
[~2019-02-14] VITALS: Ht 182.9 cm; Wt 113.8 kg
[2019-02-14 21:44] VITALS: BP 143/98
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
[2019-02-14] MEDS ORDERED: CEPH-264 PO (22:14)
[2019-02-14] MEDS ORDERED: metroNIDAZOLE 500 MG TABLET PO ONE (22:30)
[2019-02-14] MEDS ORDERED: ONDANSETRON ODT 4 MG TAB.RAPDIS PO ONE (22:30)
[2019-02-14] MEDS ORDERED: AZITHROMYCIN 250 MG TABLET. PO ONE (22:30)
[2019-02-14] MEDS ORDERED: cefTRIAXone IM 1 GM VIAL IM ONE (22:30)
[2019-02-14 23:04] LABS: BASO # 0.1 x10^3/uL (0.0-0.2); BASO % 1 % (0-3); EOS # 0.4 x10^3/uL (0.0-0.7); EOS % 4 % (0-3); HEMATOCRIT 45.9 % (39.0-53.0); HEMOGLOBIN 15.6 g/dL (13.0-17.5); LYMPH # 2.8 x10^3/uL (1.0-4.8); LYMPH % 32 % (24-48); MEAN CORPUSCULAR HEMOGLOBIN 32 pg (25-35); MEAN CORPUSCULAR HGB CONC 34 g/dL (31-37); MEAN CORPUSCULAR VOLUME 93 fL (79-100); MONO # 0.8 x10^3/uL (0.0-1.1); MONO % 9 % (0-9); NEUT # 4.9 x10^3uL (1.8-7.7); NEUT % 54 % (31-73); PLATELET COUNT 260 x10^3/uL (140-400); RED BLOOD COUNT 4.93 x10^6/uL (4.30-5.70); RED CELL DISTRIBUTION WIDTH 14.3 % (11.5-14.5)
[2019-02-14 23:13] LABS: CALCIUM 9.5 mg/dL (8.5-10.1); CREATININE 1.5 mg/dL (0.7-1.3); GFR 59.5; POTASSIUM 3.7 mmol/L (3.5-5.1)
[2019-02-14 23:16] LABS: BARBITURATES NEG (NEG); BENZODIAZEPINES NEG (NEG); CANNABINOIDS NEG (NEG); COCAINE NEG (NEG); METHADONE NEG (NEG); OPIATES NEG (NEG); PHENCYCLIDINE NEG (NEG)
[2019-02-14 23:17] LABS: AMPHETAMINE/METHAMPHETAMINE NEG (NEG)
[2019-02-14 23:19] LABS: BACTERIA,URINE 0 /HPF (0-FEW); BILIRUBIN,URINE NEG (NEG); CLARITY,URINE CLEAR; COLOR,URINE YELLOW; GLUCOSE,URINE NEG (NEG); NITRITE,URINE NEG (NEG); RBC,URINE 0 /HPF (0-2); SQUAMOUS EPITHELIAL CELL,UR OCC /LPF; UROBILINOGEN,URINE 0.2 mg/dL (0.2 mg/dL); WBC,URINE OCC /HPF (0-4)
== END 2019-02-14 23:00 | disposition home or self-care (01) ==
LOC: ER 21:40
DX: N48.5 Ulcer of penis (principal); R79.82 Elevated C-reactive protein (CRP); K21.9 Gastro-esophageal reflux disease without esophagitis; E78.00 Pure hypercholesterolemia, unspecified; I10 Essential (primary) hypertension; F17.210 Nicotine dependence, cigarettes, uncomplicated
CPT/HCPCS: 36415; 80048; 80307; 81001; 85025; 86592; 86705; 86709; 86803; 87340; 96372; 99284; J0456; J0696; Q0162

== ENCOUNTER 2019-02-23 07:04 | Emergency (ER) | payer SELFPAY ==
[~2019-02-23] VITALS: Ht 182.9 cm; Wt 111.1 kg
[2019-02-23 07:17] VITALS: BP 143/98
[2019-02-23] MEDS ORDERED: KETOROLAC 60 MG/2 ML VIAL. IM ONE (07:30)
[2019-02-23] MEDS ORDERED: HYDR-3165 PO (07:39)
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
[2019-02-23] MEDS ORDERED: HYDROcodone/APAP 5/325MG 1 TAB TABLET PO ONE (08:00)
== END 2019-02-23 08:15 | disposition home or self-care (01) ==
LOC: ER 07:04
DX: M25.562 Pain in left knee (principal); R22.42 Localized swelling, mass and lump, left lower limb; K21.9 Gastro-esophageal reflux disease without esophagitis; I10 Essential (primary) hypertension; F17.210 Nicotine dependence, cigarettes, uncomplicated
CPT/HCPCS: 96372; 99283; J1885

== ENCOUNTER 2019-05-12 14:21 | Emergency (ER) | payer SELFPAY ==
[~2019-05-12] VITALS: Ht 182.9 cm; Wt 113.8 kg
[2019-05-12 14:21] VITALS: BP 128/80
[2019-05-12] MEDS ORDERED: MELO7.5T29 PO (17:33)
[2019-05-12] MEDS ORDERED: ORPH-16 PO (17:33)
== END 2019-05-12 15:00 | disposition left against medical advice (07) ==
LOC: ER 14:21
DX: M54.5 Low back pain (principal); G89.29 Other chronic pain; Z53.21 Procedure and treatment not carried out due to patient leaving prior to being seen by health care provider

== ENCOUNTER 2019-05-12 16:27 | Emergency (ER) | payer SELFPAY ==
[~2019-05-12] VITALS: Ht 182.9 cm; Wt 113.8 kg
[2019-05-12 16:40] VITALS: BP 130/80
[2019-05-12] MEDS ORDERED: DEXAMETHASONE SOD PHOS 10 MG/ML VIAL ONE (17:30)
[2019-05-12] MEDS ORDERED: ORPH-16 PO (17:33)
[2019-05-12] MEDS ORDERED: MELO7.5T29 PO (17:33)
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
[2019-05-12] MEDS ORDERED: KETOROLAC 60 MG/2 ML VIAL. IM ONE (17:45)
[2019-05-12] MEDS ORDERED: DEXAMETHASONE SOD PHOS 10 MG/ML VIAL IM ONE (18:00)
[2019-05-12] MEDS ORDERED: ORPHENADRINE CITRATE 60 MG/2 ML VIAL. IM ONE (18:00)
== END 2019-05-12 17:44 | disposition home or self-care (01) ==
LOC: ER 16:27
DX: M54.41 Lumbago with sciatica, right side (principal); K21.9 Gastro-esophageal reflux disease without esophagitis; I10 Essential (primary) hypertension; F17.210 Nicotine dependence, cigarettes, uncomplicated
CPT/HCPCS: 96372; 99284; J1100; J1885; J2360

== ENCOUNTER 2019-05-25 06:11 | Emergency (ER) | payer SELFPAY ==
[~2019-05-25] VITALS: Ht 182.9 cm; Wt 111.0 kg
[~2019-05-25 06:11] MED LIST changes: +MELO7.5T29 PO
[2019-05-25 06:15] VITALS: BP 127/96
[2019-05-25] MEDS ORDERED: lisinopril (06:37)
[2019-05-25] MEDS ORDERED: OMEP20TA63 PO (06:37)
[2019-05-25] MEDS ORDERED: ORPHENADRINE CITRATE 60 MG/2 ML VIAL. IM ONE (07:00)
[2019-05-25] MEDS ORDERED: KETOROLAC 30 MG/ML VIAL. IM ONE (07:00)
[2019-05-25] MEDS ORDERED: DEXAMETHASONE SOD PHOS 10 MG/ML VIAL IM ONE (07:00)
[2019-05-25] MEDS ORDERED: ORPH-16 PO (07:05)
[2019-05-25] MEDS ORDERED: PRED20TA PO (07:05)
[2019-05-25] MEDS ORDERED: OXAP600T2 PO (07:05)
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
== END 2019-05-25 07:25 | disposition home or self-care (01) ==
LOC: ER 06:11
DX: M54.31 Sciatica, right side (principal); K21.9 Gastro-esophageal reflux disease without esophagitis; I10 Essential (primary) hypertension; F17.210 Nicotine dependence, cigarettes, uncomplicated
CPT/HCPCS: 96372; 99284; J1100; J1885; J2360

== ENCOUNTER 2019-07-27 01:08 | Emergency (ER) | payer SELFPAY ==
[~2019-07-27] VITALS: Ht 182.9 cm; Wt 111.1 kg
[~2019-07-27 01:08] MED LIST changes: +OMEP20TA63 PO; +OXAP600T2 PO; +lisinopril
[2019-07-27 01:21] VITALS: BP 131/80
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
[2019-07-27] MEDS ORDERED: CYCL-331 PO (02:29)
[2019-07-27] MEDS ORDERED: KETOROLAC 60 MG/2 ML VIAL. IM ONE (02:30)
[2019-07-27] MEDS ORDERED: ORPHENADRINE CITRATE 60 MG/2 ML VIAL. IM ONE (02:30)
[2019-07-27 02:41] LABS: BARBITURATES NEG (NEG); BENZODIAZEPINES NEG (NEG); CANNABINOIDS POS (NEG); COCAINE POS (NEG); METHADONE NEG (NEG); OPIATES NEG (NEG); PHENCYCLIDINE NEG (NEG)
[2019-07-27 02:52] LABS: BILIRUBIN,URINE NEG (NEG); CLARITY,URINE CLEAR; COLOR,URINE AMBER; GLUCOSE,URINE NEG (NEG)
[2019-07-27 02:53] LABS: BACTERIA,URINE FEW /HPF (0-FEW); NITRITE,URINE NEG (NEG); RBC,URINE OCC /HPF (0-2); SPERM,URINE PRESENT /HPF; SQUAMOUS EPITHELIAL CELL,UR OCC /LPF; UROBILINOGEN,URINE 1 mg/dL (0.2 mg/dL); WBC,URINE OCC /HPF (0-4)
[2019-07-27 02:54] LABS: AMPHETAMINE/METHAMPHETAMINE NEG (NEG)
[2019-07-27] MEDS ORDERED: methylPREDNISolone ACETATE 40 MG/ML VIAL. IM ONE (03:00)
[2019-07-28] MEDS ORDERED: HYDR-3165 PO (17:42)
[2019-07-28] MEDS ORDERED: METH4TAB2 PO (17:42)
== END 2019-07-27 02:45 | disposition left against medical advice (07) ==
LOC: ER 01:08
DX: G89.29 Other chronic pain (principal); M54.42 Lumbago with sciatica, left side; I10 Essential (primary) hypertension; K21.9 Gastro-esophageal reflux disease without esophagitis; F17.210 Nicotine dependence, cigarettes, uncomplicated; F12.10 Cannabis abuse, uncomplicated; F14.10 Cocaine abuse, uncomplicated; M48.061 Spinal stenosis, lumbar region without neurogenic claudication
CPT/HCPCS: 36415; 80307; 81001; 96372; 99284; J1030; J1885; J2360

== ENCOUNTER 2019-07-28 17:01 | Emergency (ER) | payer SELFPAY ==
[~2019-07-28] VITALS: Ht 182.9 cm; Wt 111.0 kg
[2019-07-28] MEDS ORDERED: KETOROLAC 60 MG/2 ML VIAL. IM ONE (17:30)
[2019-07-28] MEDS ORDERED: METH4TAB2 PO (17:42)
[2019-07-28] MEDS ORDERED: HYDR-3165 PO (17:42)
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
[2019-07-28 17:45] VITALS: BP 143/90
== END 2019-07-28 17:50 | disposition home or self-care (01) ==
LOC: ER 17:01
DX: M54.42 Lumbago with sciatica, left side (principal); G89.29 Other chronic pain; K21.9 Gastro-esophageal reflux disease without esophagitis; I10 Essential (primary) hypertension; F17.210 Nicotine dependence, cigarettes, uncomplicated
CPT/HCPCS: 96372; 99283; J1885

== ENCOUNTER 2019-07-29 08:38 | Emergency (ER) | payer SELFPAY ==
[~2019-07-29] VITALS: Ht 182.9 cm; Wt 111.0 kg
[2019-07-29] MEDS ORDERED: DEXAMETHASONE SOD PHOS 10 MG/ML VIAL IV ONE (09:00)
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
[2019-07-29] MEDS ORDERED: KETOROLAC 30 MG/ML VIAL. IVP ONE (09:30)
[2019-07-29] MEDS ORDERED: IV NORMAL SALINE 1,000ML 1,000 ML IV ONE (09:30)
[2019-07-29 10:23] VITALS: BP 159/96
== END 2019-07-29 10:35 | disposition home or self-care (01) ==
LOC: ER 08:38
DX: M54.42 Lumbago with sciatica, left side (principal); G89.29 Other chronic pain; K21.9 Gastro-esophageal reflux disease without esophagitis; I10 Essential (primary) hypertension; F17.210 Nicotine dependence, cigarettes, uncomplicated
CPT/HCPCS: 96374; 96375; 99284; J1100; J1885; J7030

== ENCOUNTER 2020-11-08 14:59 | Emergency (ER) | payer SELFPAY ==
[~2020-11-08] VITALS: Ht 182.9 cm; Wt 104.9 kg
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
[2020-11-08] MEDS ORDERED: ASPIRIN CHEWABLE 81 MG TABLET. PO ONE (15:15)
--- NOTE | 2020-11-08 15:18 | EKG ---
[address] [address] Test Date: 2020-11-08 Test Time: 15:07:46 Pat Name: NONA CAPPS Department: Room: Gender: M Environmental Consultant: SEMAJ : 1965 Requested By: KARLY HARE Order Number: [id number] Reading MD: Measurements Intervals [place] Rate: 89 P: 67 [place]: 140 QRS: 12 QRSD: 80 T: 56 QT: 332 QTc: 410 Interpretive Statements SINUS RHYTHM NORMAL ECG RI6.02 No previous ECG available for comparison
[2020-11-08] MEDS ORDERED: KETOROLAC 30 MG/ML VIAL. ONE (15:45)
--- NOTE | 2020-11-08 15:58 | RAD ---
Exam performed: One view chest. Indication: Reason: chest pain / Spl. Instructions: / History: Date of Service: 11/08/2020 3:15 PM Comparison: One view chest from 12/04/2018. Single AP upright portable view chest findings: Cardiomediastinal silhouette is within limits of normal. No acute infiltrates, effusion or pneumotho rax is detected. The bony structures are normal. Impression: No acute cardiopulmonary process is detected. Electronically signed by: Paulette Laura MD (11/08/2020 3:56 PM) [facility]
[2020-11-08] MEDS ORDERED: KETOROLAC 30 MG/ML VIAL. IVP ONE (16:00)
[2020-11-08 16:06] LABS: BASO % 0 % (0-3); EOS # 0.5 x10^3/uL (0.0-0.7); EOS % 6 % (0-3); HEMATOCRIT 47.5 % (39.0-53.0); LYMPH # 2.4 x10^3/uL (1.0-4.8); LYMPH % 29 % (24-48); MEAN CORPUSCULAR HEMOGLOBIN 32 pg (25-35); MEAN CORPUSCULAR HGB CONC 34 g/dL (31-37); MEAN CORPUSCULAR VOLUME 95 fL (79-100); MONO # 0.7 x10^3/uL (0.0-1.1); MONO % 9 % (0-9); NEUT # 4.6 x10^3uL (1.8-7.7); NEUT % 56 % (31-73); PLATELET COUNT 256 x10^3/uL (140-400); RED CELL DISTRIBUTION WIDTH 14.6 % (11.5-14.5); WHITE BLOOD COUNT 8.2 x10^3/uL (4.0-11.0)
[2020-11-08 16:10] VITALS: BP 146/95
[2020-11-08 16:16] LABS: CALCIUM 8.7 mg/dL (8.5-10.1); CREATININE 1.6 mg/dL (0.7-1.3); GFR 54.8; POTASSIUM 4.6 mmol/L (3.5-5.1)
[2020-11-08 16:22] LABS: ALBUMIN 3.2 g/dL (3.4-5.0); TOTAL BILIRUBIN 0.3 mg/dL (0.2-1.0); TOTAL PROTEIN 6.4 g/dL (6.4-8.2)
== END 2020-11-08 16:40 | disposition home or self-care (01) ==
LOC: ER 14:59
DX: R07.2 Precordial pain (principal); K21.9 Gastro-esophageal reflux disease without esophagitis; I10 Essential (primary) hypertension; F17.210 Nicotine dependence, cigarettes, uncomplicated
CPT/HCPCS: 36415; 71045; 80053; 84484; 85025; 93005; 96374; 99285; J1885

== ENCOUNTER 2020-11-24 22:20 | Emergency (ER) | payer SELFPAY ==
[~2020-11-24] VITALS: Ht 182.9 cm; Wt 104.9 kg
[2020-11-24 22:30] VITALS: BP 136/85
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
[2020-11-24] MEDS ORDERED: PROCHLORPERAZINE 10 MG/2 ML VIAL. IV ONE (23:00)
[2020-11-24] MEDS ORDERED: ACETAMINOPHEN 500 MG TABLET PO ONE (23:00)
[2020-11-24] MEDS ORDERED: KETOROLAC 15 MG/ML VIAL. IVP ONE (23:00)
[2020-11-24] MEDS ORDERED: IV NORMAL SALINE 1,000ML 1,000 ML IV ONE (23:00)
== END 2020-11-24 23:35 | disposition home or self-care (01) ==
LOC: ER 22:20
DX: G43.909 Migraine, unspecified, not intractable, without status migrainosus (principal); I10 Essential (primary) hypertension; K21.9 Gastro-esophageal reflux disease without esophagitis; F17.210 Nicotine dependence, cigarettes, uncomplicated
CPT/HCPCS: 96374; 96375; 99284; J0780; J1885; J7030

== ENCOUNTER 2020-12-09 11:07 | Emergency (ER) | payer SELFPAY ==
[~2020-12-09] VITALS: Ht 182.9 cm; Wt 102.3 kg
[2020-12-09 11:21] VITALS: BP 144/86
[2020-12-09] MEDS ORDERED: PRED50TA PO (11:43)
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
[2020-12-09] MEDS ORDERED: KETOROLAC 60 MG/2 ML VIAL. IM ONE (11:45)
[2020-12-09] MEDS ORDERED: predniSONE 10 MG TABLET PO ONE (11:45)
== END 2020-12-09 12:13 | disposition home or self-care (01) ==
LOC: ER 11:07
DX: M54.41 Lumbago with sciatica, right side (principal); K21.9 Gastro-esophageal reflux disease without esophagitis; I10 Essential (primary) hypertension; F17.210 Nicotine dependence, cigarettes, uncomplicated
CPT/HCPCS: 96372; 99283; J1885; J7512

== ENCOUNTER 2020-12-20 13:49 | Emergency (ER) | payer SELFPAY ==
[~2020-12-20 13:49] MED LIST changes: +PRED50TA PO
== END 2020-12-20 14:23 | disposition left against medical advice (07) ==
LOC: ER 13:49
DX: M54.9 Dorsalgia, unspecified (principal); Z53.21 Procedure and treatment not carried out due to patient leaving prior to being seen by health care provider

== ENCOUNTER 2021-01-08 07:55 | Emergency (ER) | payer SELFPAY ==
[~2021-01-08] VITALS: Ht 182.9 cm; Wt 102.3 kg
[2021-01-08 07:56] VITALS: BP 167/86
[2021-01-08] MEDS ORDERED: KETOROLAC 30 MG/ML VIAL. ONE (08:08)
[2021-01-08] MEDS: ACETAMINOPHEN 500 MG TABLET PO ONE (08:10)
[2021-01-08] MEDS: KETOROLAC 60 MG/2 ML VIAL. IM ONE (08:10)
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
== END 2021-01-08 08:21 | disposition home or self-care (01) ==
LOC: ER 07:55
DX: M25.561 Pain in right knee (principal); I10 Essential (primary) hypertension; K21.9 Gastro-esophageal reflux disease without esophagitis; F17.210 Nicotine dependence, cigarettes, uncomplicated; F14.10 Cocaine abuse, uncomplicated
CPT/HCPCS: 96372; 99283; J1885

== ENCOUNTER 2021-01-12 09:10 | Emergency (ER) | payer SELFPAY ==
[~2021-01-12] VITALS: Ht 182.9 cm; Wt 99.0 kg
[2021-01-12 09:10] VITALS: BP 168/111
[2021-01-12] MEDS ORDERED: KETOROLAC 30 MG/ML VIAL. IM ONE (09:30)
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
[2021-01-12] MEDS ORDERED: HYDR-2155 PO (10:16)
== END 2021-01-12 10:20 | disposition home or self-care (01) ==
LOC: ER 09:10
DX: S46.102A Unspecified injury of muscle, fascia and tendon of long head of biceps, left arm, initial encounter (principal); K21.9 Gastro-esophageal reflux disease without esophagitis; I10 Essential (primary) hypertension; F17.210 Nicotine dependence, cigarettes, uncomplicated; X50.9XXA Other and unspecified overexertion or strenuous movements or postures, initial encounter; Y93.89 Activity, other specified; Y92.89 Other specified places as the place of occurrence of the external cause; Y99.8 Other external cause status
CPT/HCPCS: 73030; 73060; 96372; 99284; J1885

== ENCOUNTER 2021-02-26 00:28 | Emergency (ER) | payer SELFPAY ==
[~2021-02-26] VITALS: Ht 182.9 cm; Wt 97.4 kg
[~2021-02-26 00:28] MED LIST changes: +HYDR-2155 PO
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
[2021-02-26 01:39] VITALS: BP 177/97
== END 2021-02-26 01:40 | disposition home or self-care (01) ==
LOC: ER 00:28
DX: S46.222A Laceration of muscle, fascia and tendon of other parts of biceps, left arm, initial encounter (principal); K21.9 Gastro-esophageal reflux disease without esophagitis; I10 Essential (primary) hypertension; F17.210 Nicotine dependence, cigarettes, uncomplicated; X50.9XXA Other and unspecified overexertion or strenuous movements or postures, initial encounter; Y93.89 Activity, other specified; Y92.89 Other specified places as the place of occurrence of the external cause; Y99.8 Other external cause status
CPT/HCPCS: 99281

== ENCOUNTER 2021-06-25 09:09 | Emergency (ER) | payer BC ==
[~2021-06-25] VITALS: Ht 182.9 cm; Wt 101.0 kg
[~2021-06-25 09:09] MED LIST changes: -CYCL-331 PO; +CYCL10TA19 PO
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
[2021-06-25] MEDS ORDERED: IOHEXOL 300 MG/ML 75 ML VIAL. IV ONE (10:00)
[2021-06-25 10:02] LABS: BASO # 0.1 x10^3/uL (0.0-0.2); BASO % 1 % (0-3); EOS # 0.4 x10^3/uL (0.0-0.7); EOS % 4 % (0-3); HEMATOCRIT 46.5 % (39.0-53.0); HEMOGLOBIN 15.8 g/dL (13.0-17.5); LYMPH # 1.9 x10^3/uL (1.0-4.8); LYMPH % 15 % (24-48); MEAN CORPUSCULAR HEMOGLOBIN 33 pg (25-35); MEAN CORPUSCULAR HGB CONC 34 g/dL (31-37); MEAN CORPUSCULAR VOLUME 96 fL (79-100); MONO # 1.3 x10^3/uL (0.0-1.1); MONO % 11 % (0-9); NEUT # 8.5 x10^3uL (1.8-7.7); NEUT % 70 % (31-73); PLATELET COUNT 238 x10^3/uL (140-400); RED BLOOD COUNT 4.85 x10^6/uL (4.30-5.70); RED CELL DISTRIBUTION WIDTH 14.4 % (11.5-14.5); WHITE BLOOD COUNT 12.1 x10^3/uL (4.0-11.0)
[2021-06-25 10:13] LABS: AMORPHOUS SEDIMENT,UR PRESENT /HPF; BACTERIA,URINE 0 /HPF (0-FEW); BILIRUBIN,URINE NEG (NEG); CLARITY,URINE CLEAR; COLOR,URINE YELLOW; GLUCOSE,URINE NEG (NEG); NITRITE,URINE NEG (NEG); SQUAMOUS EPITHELIAL CELL,UR OCC /LPF; WBC,URINE RARE /HPF (0-4); YEAST,URINE PRESENT /HPF
[2021-06-25] MEDS ORDERED: IV NORMAL SALINE 1,000ML 1,000 ML IV ONE (10:15)
[2021-06-25 10:16] LABS: CALCIUM 9.2 mg/dL (8.5-10.1); CREATININE 1.4 mg/dL (0.7-1.3); GFR 63.9; POTASSIUM 4.3 mmol/L (3.5-5.1)
[2021-06-25 10:19] LABS: BARBITURATES NEG (NEG); BENZODIAZEPINES NEG (NEG); CANNABINOIDS POS (NEG); COCAINE POS (NEG); METHADONE NEG (NEG); OPIATES NEG (NEG); PHENCYCLIDINE NEG (NEG)
[2021-06-25 10:23] LABS: ALBUMIN 3.4 g/dL (3.4-5.0); TOTAL BILIRUBIN 0.2 mg/dL (0.2-1.0); TOTAL PROTEIN 6.7 g/dL (6.4-8.2)
[2021-06-25 10:29] LABS: AMPHETAMINE/METHAMPHETAMINE NEG (NEG)
[2021-06-25 10:46] LABS: % BASOS 1 % (0-3); % EOS 6 % (0-5); % LYMPHS 17 % (24-48); % MONOS 7 % (0-10); % SEGS 69 % (35-66); PLT ESTIMATE ADEQUATE (ADEQUATE)
--- NOTE | 2021-06-25 10:59 | RAD ---
CT STUDY OF THE ABDOMEN AND PELVIS WITH CONTRAST Clinical indications: Suprapubic abdominal pain. TECHNIQUE: After IV infusion of 75 cc of Omnipaque 300, helical CT scanning of the abdomen and pelvis was performed. GI contrast was not administered. This may decrease the sensitivity to detect GI trac t pathology. PQRS COMPLIANCE STATEMENT One or more of the following individualized dose reduction techniques were utilized for this study: 1. Automated exposure control 2. Adjustment of the mA and/or kV according to patient size 3. Use of iterative reconstruction technique COMPARISON: None available. FINDINGS: The liver and spleen and pancreas and gallbladder are normal. No extrahepatic biliary ducta l dilatation is seen. No adrenal mass is evident. Both kidneys are normal without hydronephrosis or h ydroureter. Urinary bladder is not abnormally distended. No focal aneurysmal dilatation of the abdomi nal aorta is seen. No enlarged abdominal or pelvic lymphadenopathy is apparent. There is wall thicken ing of the mid sigmoid colon with pericolonic inflammation. Diverticula are present here. This is con sistent with diverticulitis. No diverticular abscess is evident. No free air or free fluid is seen. N o obstructive bowel pattern is seen. The terminal ileum is unremarkable. The appendix is normal. Stom ach is not distended. No lung base consolidation is seen. There is severe degenerative spondylosis of L4-5 with subchondral sclerosis and severe disc space narrowing and prominent endplate spurring. Sub chondral cyst formation is evident. There is spinal canal stenosis at this level. IMPRESSION: Diverticulitis of the mid sigmoid colon. Severe degenerative lumbar spondylosis at L4-5 with spinal canal stenosis. Electronically signed by: Natan Hernandez MD (06/25/2021 10:56 AM) [place] [id number]
[2021-06-25] MEDS ORDERED: METR-34 PO (11:13)
[2021-06-25] MEDS ORDERED: CIPR500T2 PO (11:13)
[2021-06-25] MEDS ORDERED: CIPROFLOXACIN HCL 500 MG TABLET PO ONE (11:15)
[2021-06-25] MEDS ORDERED: metroNIDAZOLE 500 MG TABLET PO ONE (11:15)
[2021-06-25 12:00] VITALS: BP 148/92
--- NOTE | 2021-06-25 12:08 | EKG ---
[address] [address] Test Date: 2021-06-25 Test Time: 09:59:10 Pat Name: AUGUST CAPPS Department: Room: Gender: M [employer]: XENA : 1965 Requested By: KARLY HARE Order Number: [id number] Reading MD: August Thomson Measurements Intervals [place] Rate: 84 P: 59 MD: 146 QRS: 24 QRSD: 86 T: 54 QT: 344 QTc: 410 Interpretive Statements SINUS RHYTHM NORMAL ECG RI6.02 Compared to ECG 11/08/2020 15:07:46 No significant changes Electronically Signed On 06-28-2021 9:39:05 [employer] by August Thomson
== END 2021-06-25 12:15 | disposition home or self-care (01) ==
LOC: ER 09:09
DX: K57.92 Diverticulitis of intestine, part unspecified, without perforation or abscess without bleeding (principal); K21.9 Gastro-esophageal reflux disease without esophagitis; I10 Essential (primary) hypertension; F17.210 Nicotine dependence, cigarettes, uncomplicated; Z20.822 Contact with and (suspected) exposure to COVID-19
CPT/HCPCS: 36415; 74177; 80053; 80307; 81001; 83605; 84484; 85007; 85025; 87426; 87491; 87591; 93005; 96361; 96374; 96376; 99285; C9803; J3010; J7030; Q9967; U0003